=== PATIENT | female | born 1995 | race Caucasian/White ===

== ENCOUNTER 2020-10-22 22:02 | Inpatient (IN) ==
[2020-10-22] MEDS ORDERED: Metoclopramide 10 MG/2 ML VIAL IVP PRN (22:08)
[2020-10-22] MEDS ORDERED: Famotidine 20 MG/2 ML VIAL IVP PRN (22:08)
[2020-10-22] MEDS ORDERED: Lidocaine 1% 20 ML MDV INFILT PRN (22:08)
[2020-10-22] MEDS ORDERED: *HR* Nalbuphine 10 MG/ML AMPUL IV PRN (22:08)
[2020-10-22] MEDS ORDERED: Naloxone 0.4 MG/ML INJ IVP PRN (22:08)
[2020-10-22] MEDS ORDERED: Ringers Solution, Lactated 1,000 ML IVC SCH (22:15)
[2020-10-22 22:37] LABS: Basophils % 0.2 %; Eosinophils # 0.1 K/mcL (0.0-0.6); Eosinophils % 0.6 %; Hematocrit 34.5 % (35.3-44.9); Hemoglobin 12.1 g/dL (11.5-15.4); Immature Granulocytes % 0.4 % (0-4); Lymphocytes # 3.1 K/mcL (0.6-4.6); Lymphocytes % 19.2 %; Mean Corpuscular HGB Conc 35.1 g/dL (31.6-35.5); Mean Corpuscular Hemoglobin 31.4 pg (28.0-33.3); Mean Corpuscular Volume 89.6 fL (83.0-100.0); Mean Platelet Volume 12.5 fL (9.4-12.4); Monocytes # 1.2 K/mcL (0.0-1.3); Monocytes % 7.6 %; Neutrophils # 11.6 K/mcL (1.6-8.9); Platelet Count 239 K/mcL (140-400); Red Blood Count 3.85 M/mcL (3.82-4.97); Red Cell Distribution Width 12.8 % (11.5-14.5); White Blood Count 16.1 K/mcL (4.3-11.1)
[2020-10-22] MEDS: miSOPROStoL 25 MCG TABLET PO PRN (22:38)
[2020-10-22 22:54] LABS: Amphetamine Screen,Urine Negative ng/mL (Cutoff=1000); Barbiturate Screen,Urine Negative ng/mL (Cutoff=200); Benzodiazepines Screen,Urine Negative ng/mL (Cutoff=200); Cannabinoid Screen,Urine Positive ng/mL (Cutoff = 50); Cocaine Screen,Urine Negative ng/mL (Cutoff= 300); Opiate Screen,Urine Negative ng/mL (Cutoff=300); Phencyclidine Screen,Urine Negative ng/mL (Cutoff=25)
[2020-10-23] MEDS ORDERED: Acetaminophen 325 MG TABLET PO ONE (04:00)
[2020-10-23] MEDS ORDERED: *HR* FentaNYL (PF) 100 MCG/2 ML VIAL EP ONE (06:18)
[2020-10-23] MEDS ORDERED: EPHEDrine 50 MG/ML VIAL IVP PRN (06:18)
[2020-10-23] MEDS ORDERED: Ropivacaine/PF 0.2% 20 ML VIAL EP ONE (06:18)
[2020-10-23] MEDS ORDERED: *HR* FentaNYL (PF) 250 MCG/5 ML VIAL ONE (06:21)
[2020-10-23] MEDS ORDERED: Ropivacaine/PF 0.2% 20 ML VIAL ONE (06:21)
[2020-10-23] MEDS ORDERED: Epidural Premix (fent/bupiv) 110 ML EP SCH (06:30)
[2020-10-23] MEDS: miSOPROStoL 25 MCG TABLET PO PRN (10:17)
[2020-10-23] MEDS: Ondansetron 4 MG/2 ML VIAL IVP PRN (12:31)
[2020-10-23] MEDS ORDERED: Oxytocin 20 units/ LR 1000 mL 20 UNIT/1,000 ML BAG IVC SCH (17:00)
[2020-10-23] MEDS ORDERED: *HR* FentaNYL (PF) 100 MCG/2 ML VIAL ONE (23:50)
[2020-10-24] MEDS ORDERED: *HR* FentaNYL (PF) 100 MCG/2 ML VIAL ONE ×2 (01:01→01:39)
[2020-10-24] MEDS ORDERED: Ropivacaine/PF 0.2% 20 ML VIAL ONE (01:01)
[2020-10-24] MEDS: Ondansetron 4 MG/2 ML VIAL IVP PRN (04:51)
[2020-10-24] MEDS ORDERED: Oxytocin 20 units/ LR 1000 mL 20 UNIT/1,000 ML BAG IVC SCH (06:00)
[2020-10-24] MEDS ORDERED: Measles/Mumps/Rubella Vacc 0.5 ML VIAL SQ PRN (06:00)
[2020-10-24] MEDS ORDERED: Acetaminophen 325 MG TABLET PO PRN (06:00)
[2020-10-24] MEDS ORDERED: Rho Immune Globulin 1,500 UNIT SYRINGE IM PRN (06:00)
[2020-10-24] MEDS: Prenatal Vit/FA 1 EACH TABLET PO SCH (07:52)
[2020-10-24] MEDS: Ibuprofen 600 MG TABLET PO PRN ×2 (07:53→20:11)
[2020-10-24] MEDS ORDERED: NON-FORMULARY MEDICATION 1 EACH EACH (Prenatal Vits96/Iron Fum/Folic [Prenatal Tablet] 1 E PO SCH (09:00)
[2020-10-24] MEDS ORDERED: Methylergonovine 0.2 MG/ML AMPUL IM ONE (14:19)
[2020-10-24] MEDS ORDERED: Benzocaine/Menthol 56 GM AEROSOL SPRAY TP PRN (20:15)
[2020-10-25] MEDS: Ibuprofen 600 MG TABLET PO PRN ×2 (03:37→07:50)
[2020-10-25 03:45] VITALS: O2SAT 99
[2020-10-25 03:58] LABS: Basophils # 0.1 K/mcL (0.0-0.2); Basophils % 0.3 %; Eosinophils # 0.1 K/mcL (0.0-0.6); Eosinophils % 0.6 %; Hematocrit 31.3 % (35.3-44.9); Immature Granulocytes % 0.5 % (0-4); Lymphocytes # 4.2 K/mcL (0.6-4.6); Lymphocytes % 23.8 %; Mean Corpuscular HGB Conc 33.2 g/dL (31.6-35.5); Mean Corpuscular Hemoglobin 30.1 pg (28.0-33.3); Mean Corpuscular Volume 90.5 fL (83.0-100.0); Mean Platelet Volume 12.6 fL (9.4-12.4); Monocytes # 1.6 K/mcL (0.0-1.3); Monocytes % 9.2 %; Platelet Count 221 K/mcL (140-400); Red Blood Count 3.46 M/mcL (3.82-4.97); Red Cell Distribution Width 12.8 % (11.5-14.5); Segmented Neutrophils % 65.6 %; White Blood Count 17.6 K/mcL (4.3-11.1)
[2020-10-25 03:59] LABS: Hemoglobin 10.4 g/dL (11.5-15.4); Neutrophils # 11.6 K/mcL (1.6-8.9)
[2020-10-25 04:11] LABS: Platelet Estimate Normal (Normal); Reactive Lymphocytes Present (Not Present)
[2020-10-25] MEDS: Prenatal Vit/FA 1 EACH TABLET PO SCH (07:50)
[2020-10-25 08:02] VITALS: BP 110/60; PULSE 68; TEMP 98.6
== END 2020-10-25 14:20 | disposition home or self-care (01) | DRG 806 ==
LOC: 1NENULAB 22:02 → 1NENUOBS 10-24 05:57
PROVIDERS: ADMIT Student in an Organized Health Care Education/Training Program; ATTEND Student in an Organized Health Care Education/Training Program